=== PATIENT | male | born 1990 | race Two or more races ===

== ENCOUNTER 2019-10-15 18:19 | Emergency (ER) | payer BC ==
[~2019-10-15] VITALS: Ht 195.6 cm; Wt 126.8 kg
[2019-10-15 18:31] VITALS: BP 124/84
--- NOTE | 2019-10-15 18:45 | NUR ---
REPORT TO ROSELYN YATES
[2019-10-15] MEDS ORDERED: DIPH,PERTUSS(ACELL),TET VAC/PF 0.5 ML IM-VACC ONE ×2 (18:50→19:00)
[2019-10-15] MEDS ORDERED: LIDOCAINE-MPF 1%, 2ML ONE (18:52)
[2019-10-15] MEDS ORDERED: LIDOCAINE-MPF 1%, 5ML INFIL ONE (19:00)
[2019-10-15] MEDS ORDERED: NEOSPORIN OINT. PKT 1 PACKET ONE ×2 (19:10→19:11)
== END 2019-10-15 20:13 | disposition home or self-care (01) ==
LOC: ED 19:30
DX: S61.215A Laceration without foreign body of left ring finger without damage to nail, initial encounter (principal); X58.XXXA Exposure to other specified factors, initial encounter; Y93.89 Activity, other specified; Y92.009 Unspecified place in unspecified non-institutional (private) residence as the place of occurrence of the external cause; Y99.8 Other external cause status
CPT/HCPCS: 12041; 90471; 90715